=== PATIENT | female | born 1940 | race Caucasian/White ===

== ENCOUNTER 2019-04-04 09:10 | Emergency (ER) | payer MEDICARE, OTHER ==
[~2019-04-04] VITALS: Ht 160 cm; Wt 50.0 kg
[~2019-04-04 09:10] MED LIST: ACYCLOVIR400 MG PO; AMOX/K CLAV875 M1 PO; CALCARB PO; FISH OIL1000 MG PO; FLONASE NASAL50 MCG; L-LYSINE500 MG OR; MILK THISTLE200 MG OR; MULTI VIT PO; VIT C/ACEROL500 MG OR; VITA D-1000 OR
[2019-04-04 10:45] VITALS: BP 133/70
== END 2019-04-04 10:45 | disposition home or self-care (01) ==
LOC: ED 09:10
PROC: 0HQ0XZZ Repair Scalp Skin, External Approach (ICD-10-PCS; principal; 2019-04-04)
DX: S01.01XA Laceration without foreign body of scalp, initial encounter (principal); W01.198A Fall on same level from slipping, tripping and stumbling with subsequent striking against other object, initial encounter; Y92.002 Bathroom of unspecified non-institutional (private) residence as the place of occurrence of the external cause

== ENCOUNTER 2022-07-25 08:42 | Emergency (ER) | payer MEDICARE, OTHER ==
[~2022-07-25] VITALS: Ht 160 cm; Wt 50.3 kg
[2022-07-25 08:51] VITALS: BP 164/80
[2022-07-25 09:00] VITALS: BP 153/76
[2022-07-25 09:08] LABS: BASO% 0.3 % (0-3); EOS% 0.9 % (0-8); HEMATOCRIT 41.4 % (37.0-47.0); HEMOGLOBIN 14.3 g/dl (12.0-16.0); IMMATURE GRANULOCYTES 0.2 % (0.0-5.0); LYMPH% 15.1 % (15-41); MEAN CELL VOLUME 95.6 fL CALC (80.0-100.0); MEAN CORPUSCULAR HGB CONC 34.5 g/dL CAL (32.0-36.0); MONO% 8.8 % (2-13); NEUT# 4.32 thou/uL (2.00-7.15); NEUT% 74.7 % (42-76); RED BLOOD COUNT 4.33 mill/uL (4.20-5.60); RED CELL DISTRI WIDTH 12.1 % (11.5-15.5)
[2022-07-25 09:25] LABS: ALBUMIN 4.5 g/dL (3.2-5.0); ALKALINE PHOSPHATASE 126 u/l (38-126); BILIRUBIN, TOTAL 0.6 mg/dL (0.02-1.3); BUN 14 mg/dL (8-23); BUN/CREATININE RATIO 17 (12-20 (CALC)); CARBON DIOXIDE 28 mmol/l (22-30); CHLORIDE 97 mmol/l (95-108); CREATININE 0.8 mg/dL (0.5-1.0); GFR FOR AFR.AMER. > 60 ML/MIN (>=60 (CALC)); GFR OTHER RACES > 60 ML/MIN (>=60 (CALC)); LIPASE 136 u/l (23-300); POTASSIUM 4.2 mmol/l (3.5-5.1); SGOT/AST 54 u/l (9-36); TOTAL PROTEIN 7.1 g/dL (6.3-8.2)
[2022-07-25 09:26] LABS: ANION GAP 8 (6-22 (CALC)); SODIUM 129 mmol/l (137-146)
[2022-07-25 09:29] VITALS: BP 138/52
[2022-07-25] MEDS ORDERED: MECLIZINE 2525 MG PO (10:13)
[2022-07-25] MEDS ORDERED: ZOFRAN4 MG/TAB PO (10:13)
[2022-07-25 10:20] VITALS: BP 134/58
[2022-07-25 10:31] VITALS: BP 135/49
[2022-07-25 10:51] VITALS: BP 135/49
== END 2022-07-25 11:24 | disposition home or self-care (01) ==
LOC: ED 08:42
PROVIDERS: Family Medicine
DX: R42 Dizziness and giddiness (principal); Z20.822 Contact with and (suspected) exposure to COVID-19